=== PATIENT | female | born 1965 | race American Indian/Alaskan Native ===

== ENCOUNTER 2016-12-04 10:40 | Outpatient (CLI) | payer BC ==
--- NOTE | 2016-12-04 11:47 | Mammography Report ---
Bilateral mammogram: Retroareolar burning sensation in left breast. Routine images demonstrate an intermediate density fibroglandular pattern in a symmetric distribution. No evidence of retroareolar mass or ductal dilatation identified. No architectural distortion and no calcifications in either breast. CAD used. Impression: Benign breast findings. Recommendation: Clinical followup. Any additional evaluation should be based on concern. Otherwise, annual mammogram followup. BI-RADS CATEGORY: 1 = Negative ACR BI-RADS MAMMOGRAPHIC CODES: 0 = Needs additional imaging evaluation; 1 = Negative; 2 = Benign; 3 = Probably benign; 4 = Suspicious; 5 = Malignant; 6 = Known biopsy-proven malignancy COMMENT: 1. Dense breast tissue, i.e., adenosis, fibrocystic changes, etc., may obscure an underlying neoplasm. 2. Approximately 10% of cancers are not detected with mammography. 3. A negative mammography report should not delay biopsy if a clinically suspicious mass is present.
== END 2016-12-04 10:41 | disposition home or self-care (01) ==
LOC: MAMMO 10:40
PROVIDERS: ATTEND Internal Medicine
DX: N64.4 Mastodynia (principal); Z85.3 Personal history of malignant neoplasm of breast
CPT/HCPCS: 77066; G0204

== ENCOUNTER 2017-08-14 23:39 | Emergency (ER) | payer SELFPAY ==
[2017-08-15 01:29] VITALS: BP 114/68
[2017-08-15] MEDS ORDERED: TYLENOL ONE (01:56)
[2017-08-15] MEDS ORDERED: TYLENOL PO ONE (02:01)
--- NOTE | 2017-08-15 03:00 | XRay Report ---
FINAL REPORT PROCEDURE: XR FOOT 2V LT TECHNIQUE: LEFT foot radiographs, AP and lateral views. HISTORY: s/p fall COMPARISON: No prior studies are available for comparison. FINDINGS: Fracture (s) and/or Dislocation(s): None . Alignment: Normal. Joint space(s): Normal. Soft tissues: Normal. Bone mineralization: Normal. Foreign bodies: None. Calcaneal spurring: There is a small inferior calcaneal spur. IMPRESSION: There is no acute bony injury.
--- NOTE | 2017-08-15 03:03 | XRay Report ---
FINAL REPORT PROCEDURE: XR ANKLE 2V LT TECHNIQUE: LEFT ankle radiographs, AP and lateral views. HISTORY: s/p fall COMPARISON: No prior studies are available for comparison. FINDINGS: Fracture (s) and/or Dislocation(s): None. Alignment: Normal. Joint space(s): Normal. Soft tissues: There is lateral soft tissue swelling. Bone mineralization: Normal. Foreign bodies: Normal. Calcaneal spurring: Normal. IMPRESSION: There is no acute bony abnormality. There is lateral soft tissue swelling..
[2017-08-15] MEDS ORDERED: MOTRIN PO ONE (05:06)
--- NOTE | 2017-08-15 05:06 | Emergency Department Report ---
ED Lower Extremity HPI - General Chief Complaint: Extremity Injury, Lower Stated Complaint: LEFT ANKLE INJURY Time Seen by Provider: 08/15/17 05:04 Source: patient Mode of arrival: Ambulatory Limitations: No Limitations - History of Present Illness Initial Comments: Patient reports that she injured her left ankle after she fell down at home yesterday. She says she had accidental fall. This happened at 4 AM in the morning. She is reporting pain and swelling to left outer ankle pain 10 out of 10 and aching and throbbing. She says she is unable to weight-bear. She took [id number] pain medication without any relief. Patient drove herself to the hospital and then while she was outside in her car she called ambulance to bring her into the hospital. She denies any head injury. Denies any numbness or tingling to extremities. Denies any bruising or lacerations. Pain is worse with movement better with rest. MD Complaint: ankle injury, foot injury -: Sudden, This morning (at 4 AM on 08/14/2017) Injury: Ankle: Right (pain and swelling due to injury), Foot: Right (pain due to injury) Type of Injury: inversion Place: home Severity: severe Severity scale (0 -10): 10 Improves With: immobilization, rest Worsens With: weight bearing, movement, palpation Context: fall (and twisted left ankle) Associated Symptoms: swelling, unable to bear weight. denies: snap/pop sensation, numbness, tingling, ambulatory Treatments Prior to Arrival: other (none) - Related Data Previous Rx's Medication Instructions Recorded Last Taken Type Acetaminophen/Codeine [Tylenol 1 tab PO Q6H PRN #12 tab 08/15/17 Unknown Rx /Codeine # 3 tab] Ibuprofen [Motrin] 600 mg PO Q8H PRN #15 tablet 08/15/17 Unknown Rx Allergies Allergy/AdvReac Type Severity Reaction Status Date / Time quetiapine fumarate Allergy INCOHERENT,COULD Verified 08/15/17 06:03 [From Seroquel] NOT FOCUS, ED Review of Systems ROS: Stated complaint: LEFT ANKLE INJURY Other details as noted in HPI Comment: All other systems reviewed and negative Constitutional: no symptoms reported Respiratory: no symptoms reported Cardiovascular: denies: chest pain, palpitations, dyspnea on exertion, orthopnea , edema, syncope, paroxysmal nocturnal dyspnea Gastrointestinal: denies: abdominal pain, nausea, vomiting Musculoskeletal: joint swelling, arthralgia. denies: back pain, myalgia Skin: denies: rash Neurological: abnormal gait. denies: headache, weakness, numbness, paresthesias , confusion, vertigo ED Past Medical Hx - Past Medical History Previous Medical History?: Yes Additional medical history: fuchs cornnea - Surgical History Past Surgical History?: Yes Additional Surgical History: catarack - Family History Family history: no significant - Social History Smoking Status: Never Smoker Substance Use Type: None - Medications Home Medications: Home Medications Medication Instructions Recorded Confirmed Last Taken Type Acetaminophen/Codeine [Tylenol 1 tab PO Q6H PRN #12 tab 08/15/17 Unknown Rx /Codeine # 3 tab] Ibuprofen [Motrin] 600 mg PO Q8H PRN #15 tablet 08/15/17 Unknown Rx ED Physical Exam - General Limitations: No Limitations General appearance: alert, in no apparent distress - Head Head exam: Present: atraumatic, normocephalic, normal inspection, other (normal exam) - Eye Eye exam: Present: normal appearance, PERRL, EOMI. Absent: periorbital swelling , periorbital tenderness Pupils: Present: normal accommodation - ENT ENT exam: Present: normal exam, normal orophraynx, mucous membranes moist, TM's normal bilaterally, normal external ear exam - Neck Neck exam: Present: normal inspection, full ROM, other (no C-spine tenderness). Absent: tenderness, lymphadenopathy - Respiratory Respiratory exam: Present: normal lung sounds bilaterally. Absent: respiratory distress, chest wall tenderness - Cardiovascular Cardiovascular Exam: Present: regular rate, normal rhythm, normal heart sounds - GI/Abdominal GI/Abdominal exam: Present: soft, normal bowel sounds. Absent: distended, tenderness, guarding, rebound, rigid - Extremities Exam Extremities exam: Present: tenderness (ankle), normal capillary refill, pedal edema (foot), joint swelling (ankle), other (no clubbing, cyanosis. Patient does have swelling to left ankle and mild swelling to the dorsal aspect of left foot. +2 pulses all extremities and no neurovascular compromise. +3 strength to left ankle otherwise +5 strength in all other extremities..). Absent: normal inspection, full ROM (Limited range of motion to left ankle), calf tenderness - Expanded Lower Extremity Exam Left Hip exam: Present: normal inspection, full ROM, pelvic stability. Absent: tenderness, swelling, abrasion, laceration, ecchymosis, deformity, crepidus, dislocation, erythema, external rotation, internal rotation, shortening Upper Leg exam: Present: normal inspection, full ROM. Absent: tenderness, swelling, abrasion, laceration, ecchymosis, deformity, crepidus, dislocation, erythema Knee exam: Present: normal inspection, full ROM, full knee extension. Absent: tenderness, swelling, abrasion, laceration, ecchymosis, deformity, crepidus, erythema, effusion, pain w/ pronation/supination, posterior draw sign, pain/ laxity with valgus, pain/laxity with varus Lower Leg exam: Present: normal inspection, full ROM. Absent: tenderness, swelling, abrasion, laceration, ecchymosis, deformity, crepidus, dislocation, erythema, palpable cord, Chelsi's sign Ankle exam: Present: tenderness, swelling. Absent: normal inspection, full ROM (Limited range of motion to left ankle due to pain and swelling.), abrasion, laceration, ecchymosis, deformity, crepidus, dislocation, erythema Foot/Toe exam: Present: full ROM (full range of motion to left foot), swelling ( mild swelling dorsal aspect of left foot). Absent: normal inspection, tenderness, abrasion, laceration, ecchymosis, deformity, crepidus, dislocation, erythema, amputation, puncture wound, foreign body, calcaneal tenderness, tenderness at base of 5th metatarsal, nail avulsion, subungual hematoma Neuro vascular tendon exam: Present: no vascular compromise, motor deficit ( patient with decreased motor movement to left ankle due to pain and swelling after injury), significant pain with passive ROM of distal joint. Absent: pulse deficit, abnormal cap refill, sensory deficit, tendon deficit, extremity cold to touch, pallor, abnormal 2-point discrimination, decreased fine/light touch, foot drop, peroneal nerve deficit Gait: Positive: antalgic, unable to bear weight - Back Exam Back exam: Present: normal inspection, full ROM. Absent: tenderness, CVA tenderness (R), CVA tenderness (L), muscle spasm, paraspinal tenderness, vertebral tenderness, rash noted - Neurological Exam Neurological exam: Present: alert, oriented X3, abnormal gait (abnormal gait due to swelling and difficulty in moving the left ankle. Patient is not able to weight-bear.), reflexes normal - Psychiatric Psychiatric exam: Present: normal affect, normal mood - Skin Skin exam: Present: warm, dry, intact, normal color. Absent: rash ED Course Vital Signs 08/15/17 08/15/17 08/15/17 00:48 04:19 06:18 Temperature 98.6 F 98.5 F Pulse Rate 60 64 Respiratory 16 18 18 Rate Blood Pressure 114/68 Blood Pressure 114/68 [Left] O2 Sat by Pulse 100 100 Oximetry - Reevaluation(s) Reevaluation #1: 08/15/17 06:51 She given Motrin 800 mg emergency room for left foot pain/ankle pain. - Orthopedic Splinting/Casting Injury #1 Side: left Lower Extremity Injury Location: ankle Lower Extremity Immobilizer: stirrup splint Other Orthopedic Equipment: crutches Additional Comments: Patient with good color, sensation and temperature and +2 pulses to left foot. She is able to move her toes and left foot without any difficulty status post splint placement ED Lower Extremity MDM - Radiology Data Radiology results: report reviewed X-ray of left foot revealed no acute bony injury. But she does have some calcaneal inferior spur. No mention of soft tissue injury. X-ray of left ankle reveal patient with no bony of the malleoli but there is lateral soft tissue swelling. - Medical Decision Making ED course: pt status post accidental fall with injury to her left ankle presented to the emergency room with left ankle pain and swelling and left foot pain with mild swelling. X-ray of the left ankle reveal lateral soft tissue swelling without any fracture dislocation and x-ray of left foot reveal no acute fracture dislocation the patient with inferior calcaneal spur. She given Motrin 800 mg in the emergency room for pain with shoulder pain. Also she has ankle stirrup placed the left ankle with crutches. See procedure note for details. I discussed the patient her x-ray results she was understanding. Rice therapy also explained. I discussed the patient she is to follow-up with orthopedic doctor regarding left ankle sprain as this could be ligamentous injury. Patient is stable and discharged home in stable condition with prescription for Tylenol 3 to take for severe pain and Motrin for mild to moderate pain. Critical care attestation.: If time is entered above; I have spent that time in minutes in the direct care of this critically ill patient, excluding procedure time. ED Disposition Clinical Impression: Pain in joint involving left ankle and foot Accidental fall Qualifiers: Encounter type: initial encounter Qualified Code(s): W19.XXXA - Unspecified fall, initial encounter Sprain of left ankle Qualifiers: Encounter type: initial encounter Involved ligament of ankle: unspecified ligament Qualified Code(s): S93.402A - Sprain of unspecified ligament of left ankle, initial encounter Injury of left ankle and foot Qualifiers: Encounter type: initial encounter Qualified Code(s): S99.912A - Unspecified injury of left ankle, initial encounter; S99.922A - Unspecified injury of left foot, initial encounter Disposition: TO HOME OR SELFCARE Is pt being admited?: No Does the pt Need Aspirin: No Condition: Stable Instructions: Arthralgia (ED), Ankle Stirrup Splint (ED), Ankle Sprain (ED), RICE Therapy (ED) Additional Instructions: Please follow up with primary care as recommended Increase fluid intake Take 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 3 as this medication causes drowsiness . Motrin for mild to moderate pain. Referred to discharge instruction in Rice therapy. No weightbearing to left lower extremity until instructed by orthopedic doctor follow-up with orthopedic doctor as instructed. Prescriptions: Acetaminophen/Codeine [Tylenol /Codeine # 3 tab] 1 tab PO Q6H PRN #12 tab PRN Reason: severe pain Ibuprofen [Motrin] 600 mg PO Q8H PRN #15 tablet PRN Reason: mild to moderate pain Referrals: PRIMARY MD OPAL [Primary Care Provider] - 2-3 Days JOSE LEONARDO MD [Staff Physician] - 2-3 Days Forms: Work/School Release Form(ED)
== END 2017-08-15 07:45 | disposition home or self-care (01) ==
LOC: ED 23:39
DX: S93.402A Sprain of unspecified ligament of left ankle, initial encounter (principal); S99.922A Unspecified injury of left foot, initial encounter; Z88.8 Allergy status to other drugs, medicaments and biological substances; W19.XXXA Unspecified fall, initial encounter; Y93.89 Activity, other specified; Y99.8 Other external cause status; Y92.009 Unspecified place in unspecified non-institutional (private) residence as the place of occurrence of the external cause